=== PATIENT | female | born 1980 | race African-American/Black ===

== ENCOUNTER → 2016-07-14 | Outpatient (CLI) | payer OTHER | LOC: RAD 13:39 | PROVIDERS: ATTEND Family Medicine | DX: D35.2 Benign neoplasm of pituitary gland (principal) | CPT/HCPCS: 70553; A9577 ==

== ENCOUNTER → 2018-11-01 | Day surgery (SDC) | payer OTHER ==
[~2018-11-01] MED LIST: EPHEDRINE SULFATE INJ 50 MG/1 ML AMPULE ONE; FENTANYL CITRATE INJ/PF 250 MCG/5 ML AMPULE ONE; IMIQUIMOD 5% TOP PRN; LACTATED RINGERS 1000 ML IV PRN; LIDOCAINE 0.5% INJ-PF (5 MG/ML) 50 ML SDV SUBCUT PRN; METOPROLOL TARTRATE 25 MG TABLET ONE; METOPROLOL TARTRATE 50 MG TABLET PO PRN; MIDAZOLAM 2 MG/2 ML INJ ONE; PROPOFOL INJ 200 MG/20 ML VIAL IV ONE; TRIAMCINOLONE ACETONIDE INJ 40 MG/1 ML VIAL INJ PRN
[2018-11-01 11:25] VITALS: BP 146/100
== END ==
LOC: OROUT 10:37
PROVIDERS: ATTEND Otolaryngology
DX: L91.0 Hypertrophic scar (principal)
CPT/HCPCS: 81025; J2250; J3010; J2704; J3490

== ENCOUNTER 2018-12-25 08:55 | Day surgery (SDC) | payer OTHER ==
[~2018-12-25 08:55] MED LIST changes: +CEFAZOLIN 2 GM/D5W RTU 2 GM/50 ML RTUPB IV PRN; +DEXAMETHASONE SOD PHOS INJ 10 MG/1 ML VIAL ONE; +DEXMEDETOMIDINE INJ 80 MCG/20 ML VIAL IV ONE; +DISPOSABLE INJ PRN; -EPHEDRINE SULFATE INJ 50 MG/1 ML AMPULE ONE; +FENTANYL CITRATE INJ/PF 100 MCG/2 ML AMPUL ONE; +FLUOROURACIL INJ PRN; +GLYCOPYRROLATE INJ 0.4 MG/2 ML VIAL ONE; -LACTATED RINGERS 1000 ML IV PRN; -LIDOCAINE 0.5% INJ-PF (5 MG/ML) 50 ML SDV SUBCUT PRN; +LIDOCAINE 2% INJ-PF (100 MG/5 ML) SYRINGE ONE; -METOPROLOL TARTRATE 25 MG TABLET ONE; -METOPROLOL TARTRATE 50 MG TABLET PO PRN; +ONDANSETRON HCL INJ/PF 4 MG/2 ML SDV ONE; -TRIAMCINOLONE ACETONIDE INJ 40 MG/1 ML VIAL INJ PRN; +TRIAMCINOLONE ACETONIDE INJ PRN
[2018-12-25] MEDS ORDERED: BACITRACIN ZINC OINTMENT 15 GM ONE (09:59)
[2018-12-25] MEDS ORDERED: BUPIVACAINE HCL 0.5 % INJ/PF 30 ML SDV ONE (09:59)
[2018-12-25] MEDS ORDERED: BUPIVACAINE HCL 0.5%/EPI 1:200000 INJ 1.8 ML CARTRIDGE ONE (09:59)
[2018-12-25] MEDS ORDERED: TOBRAMYCIN SULFATE/DEXAMETH OPH OINTMENT 3.5 GM ONE (11:33)
--- NOTE | 2019-01-02 22:30 | Operative Report ---
[facility] Oper[facility] Report: DATE OF OPERATION: December 25, 2018 PREOPERATIVE DIAGNOSIS: 1. Right ear keloid scar tissue 2. Right ear deformity acquired 3. Chronic right ear pain 4. Chronic right ear pruritus 5. 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 Right ear keloid scar tissue 2. Right ear deformity acquired 3. Chronic right ear pain 4. Chronic right ear pruritus 5. 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 Right ear complex excision of keloid scar tissue with complex ear repair using local flaps 2. Injection of Kenalog and 5 fluorouracil at the right ear, midline upper chest keloid, and bilateral lumbar spine keloids Primary Surgeon of Record: Dr. Gadiel Duron RIVETER PORTABLE MACHINE: None Anesthesia Staff: AURELIO Murillo ANESTHESIA: General Endotracheal Tube Anesthesia DRAINS: None SPONGE COUNT: Verified Needle Count: N/A SPECIMEN/MATERIALS FORWARD TO THE LAB: 1. Right ear keloid scar tissue measuring greater than 4.5 x 2 x 2 cm ESTIMATED BLOOD LOSS: 3 mL IV FLUIDS: 800 mL COMPLICATIONS: None Findings: 1. Right ear keloid scar tissue measuring greater than 4.5 x 2 x 2 cm and with upper ear quired deformities. 2. Upper chest midline 6 x 6 mm keloid, and bilateral lumbar spine 6 x 6 keloids all with hyperpigmentation noted. INDICATIONS: This is a 38-year-old Afro-[place] female who was seen and evaluated in the [place] ot[facility] office. The patient had been referred for and she complained of a steadily enlarging right ear keloid scar tissue mass with resulting ear deformity that has progressed over the years and she is with chronic ear pain and pruritus. She has desired to have the keloid scar tissue removed in the ear reconstructed. After extensive discussion with the patient the recommendation and plan was to proceed with excision of the right ear keloid scar tissue mass with reconstruction of the ear using local flaps, and injection of Kenalog and 5-fluorouracil. The patient also desired to have her upper chest midline keloid and her to lumbar spine keloids injected with Kenalog and 5- fluorouracil as well as she did not desire to have them excised at present. The procedure and all of the risks and complications were all discussed in detail with the patient. The voiced an understanding of the described surgical plan, were in agreement, and consent was obtained. DESCRIPTION OF OPERATIVE PROCEDURE: The patient was taken to the main operating room and was placed on the operating room table in the supine position. Appropriate monitors were placed. Using mask and IV access general anesthesia was induced. The patient was next transorally intubated without difficulty. The patient was next positioned and prepped for right ear surgery. A planned surgical incision site with local flaps was marked followed by infiltration with local anesthetic to establish a right ear block. At this point the patient was prepped and draped in a sterile fashion for right ear surgery. The overlying skin and keloid scar tissue mass were carefully excised taking great care to preserve the natural contour of the auricular cartilage frame. At this point the flaps were trimmed and next set in place with 6-0 Prolene suture. A 2 mm dermal punch was used to remove the anterior superior helical ear piercing site with keloid scar tissue change and hyperpigmentation. At this point the right upper ear was infiltrated with 0.4 mL of Kenalog and 5-fluorouracil. Once complete the ear was cleaned and dried followed by placement of imiquimod cream and bacitracin ointment followed by form gauze and an aluminum with foam pressure splint. Attention was now turned to the upper chest midline keloid and lumbar keloids with overlying skin prepped with alcohol wipes followed by infiltration with Kenalog with 5 fluorouracil with 0.1 mL administered at each location. The patient was then returned to the anesthesia staff and was allowed to emerge from general anesthesia. The patient was extubated in the operating room and was transported to the post anesthesia recovery unit in stable condition. There were no complications.
== END 2018-12-25 15:34 | disposition home or self-care (01) ==
LOC: SC 08:55
PROVIDERS: ATTEND Otolaryngology
DX: L91.0 Hypertrophic scar (principal); H92.01 Otalgia, right ear; H61.111 Acquired deformity of pinna, right ear
CPT/HCPCS: 00120; 14060; 11900; J2250; J3490 ×5; J3010; J9190; J2001; J2405; J3301; J2704; J1100; J0690; 120